=== PATIENT | female | born 2000 | race Two or more races ===

== ENCOUNTER 2022-08-13 17:25 | Inpatient (IN) | payer MEDICAID, OTHER ==
[~2022-08-13] VITALS: Ht 167.6 cm; Wt 87.0 kg
[2022-08-13] MEDS ORDERED: ONDANSETRON HCL 4 MG/2 ML VIAL IV ONE (17:45)
[2022-08-13 18:22] LABS: Basophils # (auto) 0.1 10 ^3/uL (0-0.2); Basophils % (auto) 0.8 % (0.0-2.0); Eosinophils # (auto) 0.1 10 ^3/uL (0-0.8); Eosinophils % (auto) 0.6 % (0.0-7.0); Hemoglobin 16.3 g/dL (12.2-16.2); Lymphocytes # (auto) 2.3 10 ^3/uL (0.4-5.4); Lymphocytes % (auto) 19.4 % (10.0-50.0); Mean Corpuscular Hemoglobin 28.9 pg (28.0-32.0); Mean Corpuscular Hgb Conc. 33.9 g/dL (32.0-36.0); Mean Corpuscular Volume 85.1 fL (80.0-100.0); Monocytes # (auto) 0.6 10 ^3/uL (0-1.3); Monocytes % (auto) 5.2 % (0.0-12.0); Neutrophils # (auto) 8.9 10 ^3/uL (1.6-8.6); Red Blood Cells 5.65 10^6/uL (4.0-5.20); Red Cell Distribution Width 14.7 % (11.8-14.3)
[2022-08-13 18:39] LABS: Albumin 4.2 g/dL (3.4-5.0); Calcium 9.1 mg/dL (8.5-10.1); Potassium 3.7 mmol/L (3.5-5.1)
[2022-08-13 18:40] LABS: Urine Bacteria FEW /hpf (None Seen); Urine Blood Negative /uL (Negative); Urine Mucus MANY (None Seen); Urine WBC 1 /hpf (0 - 5)
[2022-08-13 18:42] LABS: BUN/Creatinine Ratio 10.7 (10.0-20.0); Bilirubin, Total 1.1 mg/dL (0.2-1.0); Total Protein 7.7 g/dL (6.4-8.2)
[2022-08-13] MEDS ORDERED: SODIUM CHLORIDE 0.9% 1,000 ML IV ONE (19:00)
[2022-08-13] MEDS ORDERED: METOCLOPRAMIDE HCL 5MG/ml INJ 2ml VIAL IV ONE ×2 (19:00→22:30)
[2022-08-13 19:27] LABS: Amphetamine Screen, Urine NEGATIVE (NEGATIVE); Barbiturate Scree,Urine NEGATIVE (NEGATIVE); Benzodiazephine Screen, Urine NEGATIVE (NEGATIVE); Cannabinoid Screen, Urine POSITIVE (NEGATIVE); Cocaine Screen, Urine NEGATIVE (NEGATIVE); Opiate Scree,Urine NEGATIVE (NEGATIVE); Phencyclidine Screen, Urine NEGATIVE (NEGATIVE)
[2022-08-13] MEDS ORDERED: LORazepam 2MG/ML-1ML VIAL IV ONE (19:45)
[2022-08-13] MEDS ORDERED: PIPERACILLIN-TAZOB 3.375GM 100 ML IV ONE (20:15)
[2022-08-13] MEDS ORDERED: diphenhdrAMINE HCL 50 MG/1 ML VL IV ONE (21:00)
[2022-08-14] MEDS ORDERED: LORazepam 2MG/ML-1ML VIAL IV ONE
[2022-08-14] MEDS ORDERED: TEMAZEPAM 15 MG CAP PO PRN (01:15)
[2022-08-14] MEDS ORDERED: ACETAMINOPHEN 325 MG TAB PO PRN (01:15)
[2022-08-14] MEDS ORDERED: HYDROcodone-ACET 5/325MG TAB PO PRN (01:15)
[2022-08-14 01:35] LABS: Basophils # (auto) 0 10 ^3/uL (0-0.2); Basophils % (auto) 0.1 % (0.0-2.0); Eosinophils # (auto) 0 10 ^3/uL (0-0.8); Hematocrit 44.8 % (36.0-46.0); Hemoglobin 15.2 g/dL (12.2-16.2); Lymphocytes # (auto) 0.7 10 ^3/uL (0.4-5.4); Lymphocytes % (auto) 5.9 % (10.0-50.0); Mean Corpuscular Hemoglobin 29.3 pg (28.0-32.0); Mean Corpuscular Hgb Conc. 33.8 g/dL (32.0-36.0); Mean Corpuscular Volume 86.7 fL (80.0-100.0); Monocytes # (auto) 0.2 10 ^3/uL (0-1.3); Monocytes % (auto) 1.8 % (0.0-12.0); Neutrophils # (auto) 11.3 10 ^3/uL (1.6-8.6); Neutrophils % (auto) 92.2 % (37.0-80.0); Red Blood Cells 5.17 10^6/uL (4.0-5.20); Red Cell Distribution Width 14.7 % (11.8-14.3); White Blood Cell 12.3 10^3/uL (4.4-10.8)
[2022-08-14] MEDS: ONDANSETRON HCL 4 MG/2 ML VIAL IV PRN ×3 (01:44→19:49)
[2022-08-14 01:58] LABS: Albumin 3.6 g/dL (3.4-5.0); BUN/Creatinine Ratio 14.3 (10.0-20.0); Calcium 8.6 mg/dL (8.5-10.1); Potassium 4.2 mmol/L (3.5-5.1)
[2022-08-14 02:01] LABS: Bilirubin, Total 0.9 mg/dL (0.2-1.0)
[2022-08-14] MEDS ORDERED: PROMETHAZINE HCL 25 MG/ML 1ML IV ONE ×2 (04:00→07:00)
[2022-08-14] MEDS ORDERED: DICYCLOMINE HCL 10 MG CAP PO ONE (10:15)
[2022-08-14] MEDS: PANTOPRAZOLE 40 MG TAB PO SCH (11:19)
[2022-08-14 11:37] VITALS: BP 141/92
[2022-08-14 13:27] VITALS: BP 141/92
[2022-08-14] MEDS: SODIUM CHLORIDE 0.9% 1,000 ML IV SCH (16:12)
[2022-08-14] MEDS: PROMETHAZINE HCL 25 MG/ML 1ML IV PRN (16:12)
[2022-08-14 17:00] VITALS: BP 125/72
[2022-08-14] MEDS ORDERED: METOCLOPRAMIDE HCL 5MG/ml INJ 2ml VIAL IV ONE ×2 (18:00→22:00)
[2022-08-14 22:00] VITALS: BP 136/92
[2022-08-15] MEDS: SODIUM CHLORIDE 0.9% 1,000 ML IV SCH ×2 (01:45→05:03)
[2022-08-15] MEDS: PROMETHAZINE HCL 25 MG/ML 1ML IV PRN ×4 (02:42→21:44)
[2022-08-15 05:00] VITALS: BP 98/47
[2022-08-15] MEDS: ONDANSETRON HCL 4 MG/2 ML VIAL IV PRN ×2 (05:16→18:51)
[2022-08-15 05:55] LABS: Basophils # (auto) 0 10 ^3/uL (0-0.2); Basophils % (auto) 0.3 % (0.0-2.0); Eosinophils # (auto) 0 10 ^3/uL (0-0.8); Eosinophils % (auto) 0.1 % (0.0-7.0); Hematocrit 44.5 % (36.0-46.0); Lymphocytes # (auto) 1.4 10 ^3/uL (0.4-5.4); Lymphocytes % (auto) 11.5 % (10.0-50.0); Mean Corpuscular Hemoglobin 29.6 pg (28.0-32.0); Mean Corpuscular Hgb Conc. 33.8 g/dL (32.0-36.0); Mean Corpuscular Volume 87.7 fL (80.0-100.0); Monocytes # (auto) 0.7 10 ^3/uL (0-1.3); Monocytes % (auto) 5.2 % (0.0-12.0); Neutrophils # (auto) 10.3 10 ^3/uL (1.6-8.6); Neutrophils % (auto) 82.9 % (37.0-80.0); Nucleated Red Blood Cells % 0.1 %; Red Blood Cells 5.07 10^6/uL (4.0-5.20); Red Cell Distribution Width 14.7 % (11.8-14.3); White Blood Cell 12.4 10^3/uL (4.4-10.8)
[2022-08-15 06:09] LABS: BUN/Creatinine Ratio 17.9 (10.0-20.0); Calcium 8.6 mg/dL (8.5-10.1); Potassium 3.7 mmol/L (3.5-5.1)
[2022-08-15 09:00] VITALS: BP 133/77
[2022-08-15] MEDS: PANTOPRAZOLE 40 MG TAB PO SCH (09:18)
[2022-08-15] MEDS: D5W/SOD CHL 0.45% 1,000 ML IV SCH (15:38)
[2022-08-15] MEDS: cefTRIAXone 1GM/50ML D5W 50 ML IV SCH (16:27)
[2022-08-15 17:44] VITALS: BP 118/68
[2022-08-15] MEDS: metroNIDAZOLE 500MG/100ML 100 ML IV SCH (18:09)
[2022-08-15 22:00] VITALS: BP 117/69
[2022-08-16] MEDS: ONDANSETRON HCL 4 MG/2 ML VIAL IV PRN ×2 (00:13→04:17)
[2022-08-16] MEDS: metroNIDAZOLE 500MG/100ML 100 ML IV SCH ×3 (00:16→16:00)
[2022-08-16] MEDS: D5W/SOD CHL 0.45% 1,000 ML IV SCH ×2 (00:18→10:30)
[2022-08-16 05:00] VITALS: BP 138/103
[2022-08-16] MEDS: PROMETHAZINE HCL 25 MG/ML 1ML IV PRN (06:35)
[2022-08-16] MEDS: cefTRIAXone 1GM/50ML D5W 50 ML IV SCH (08:39)
[2022-08-16 09:00] VITALS: BP 111/54
[2022-08-16] MEDS: PANTOPRAZOLE 40 MG TAB PO SCH (10:00)
[2022-08-16 13:00] VITALS: BP 129/86
[2022-08-16] MEDS ORDERED: fentaNYL CITRATE 100 MCG/2 ML VL ONE (15:30)
[2022-08-16] MEDS ORDERED: ONDANSETRON HCL 4 MG/2 ML VIAL ONE (15:30)
[2022-08-16] MEDS ORDERED: PROPOFOL 10 MG/ML 20 ML IV ONE (15:30)
[2022-08-16] MEDS ORDERED: MIDAZOLAM HCL 2MG/2ML 2ml VIAL (1mg/ml) ONE (15:30)
[2022-08-16] MEDS ORDERED: diazePAM 2 MG TAB PO PRN (15:45)
[2022-08-16] MEDS ORDERED: ONDANSETRON HCL 4 MG/2 ML VIAL IV PRN (16:15)
[2022-08-16 16:23] VITALS: BP 114/81
[2022-08-16] MEDS ORDERED: SUCR1TAB22 OR (17:15)
[2022-08-16] MEDS ORDERED: PANT40TA2 PO (17:15)
[2022-08-16] MEDS ORDERED: ZOFR4T PO (17:16)
== END 2022-08-16 18:58 | disposition home or self-care (01) | DRG 241 ==
LOC: ER 17:25 → OVERFLOW 08-14 01:10 → WEST WING 08-14 11:38
PROVIDERS: ADMIT Nurse Practitioner; ATTEND Nurse Practitioner Acute Care
PROC: 0DB68ZX Excision of Stomach, Via Natural or Artificial Opening Endoscopic, Diagnostic (ICD-10-PCS; 2022-08-16)
PROC: 0DB38ZX Excision of Lower Esophagus, Via Natural or Artificial Opening Endoscopic, Diagnostic (ICD-10-PCS; 2022-08-16)
PROC: 0DB98ZX Excision of Duodenum, Via Natural or Artificial Opening Endoscopic, Diagnostic (ICD-10-PCS; principal; 2022-08-16 15:33)
DX: K29.70 Gastritis, unspecified, without bleeding (principal); K22.10 Ulcer of esophagus without bleeding; I88.0 Nonspecific mesenteric lymphadenitis; E66.9 Obesity, unspecified; F12.10 Cannabis abuse, uncomplicated; E86.0 Dehydration; K44.9 Diaphragmatic hernia without obstruction or gangrene; Z88.8 Allergy status to other drugs, medicaments and biological substances; Z68.30 Body mass index [BMI] 30.0-30.9, adult; R11.2 Nausea with vomiting, unspecified
CPT/HCPCS: 36415; 70450; 74176; 80048; 80053; 80307; 81001; 82962; 83690; 84702; 85025; 86850; 86900; 86901; 96361; 96365; 96375; 96376; G0378; J0696; J2250; J2405; J2543; J2704; J3490